=== PATIENT | male | born 1965 ===

== ENCOUNTER 2017-12-31 15:50 | Outpatient (CLI) | payer OTHER ==
[2018-01-05] MEDS ORDERED: DIOVAN PO (13:15)
[2018-01-05] MEDS ORDERED: TOPROL XL100 M1 PO (13:16)
== END 2018-01-01 09:29 | disposition home or self-care (01) ==
LOC: RAD 15:50
DX: K92.1 Melena (principal); D12.9 Benign neoplasm of anus and anal canal; D12.8 Benign neoplasm of rectum

== ENCOUNTER 2018-01-05 16:40 | Outpatient (CLI) | payer OTHER ==
[~2018-01-05 16:40] MED LIST: DIOVAN PO; TOPROL XL100 M1 PO
== END 2018-01-05 16:42 | disposition home or self-care (01) ==
LOC: LAB 16:40
DX: D68.8 Other specified coagulation defects (principal)

== ENCOUNTER 2018-01-13 08:54 | Day surgery (SDC) | payer OTHER | END 2018-01-13 17:55 | disposition home or self-care (01) | LOC: CIR.AMB 08:54 | DX: D12.9 Benign neoplasm of anus and anal canal (principal); K64.1 Second degree hemorrhoids; Z86.010 Personal history of colon polyps ==